=== PATIENT | female | born 1985 | race Caucasian/White ===

== ENCOUNTER 2023-03-01 14:49 | Outpatient (REF) | payer OTHER, SELFPAY ==
--- NOTE | ~2023-03-01 | XR_ITS ---
EXAMINATION: XR SHOULDER, RIGHT CLINICAL INFORMATION: Pain COMPARISON: None available. TECHNIQUE: Three views of the right shoulder. FINDINGS: No acute visible fracture or dislocation. Joint spaces and alignment are maintained. Soft tissues are unremarkable. Visualized portions of the right chest are unremarkable. XR/XR shoulder RT min 2V IMPRESSION: No acute visible fracture or dislocation.
== END 2023-03-01 14:50 | disposition home or self-care (01) ==
LOC: HO.HOSX 14:49
PROVIDERS: PCP Internal Medicine; Visit Provider Physician Assistant
DX: M75.21 Bicipital tendinitis, right shoulder (principal); M75.81 Other shoulder lesions, right shoulder
CPT/HCPCS: 20610; 73030; J1040

== ENCOUNTER 2023-03-01 14:49 | Outpatient (AMB) | payer OTHER, SELFPAY ==
--- NOTE | 2023-03-01 15:04 | A.OFFVIS_ITS ---
Intake Vital Signs 03/01/23 15:05 Height 5 ft 7 in Weight 205 lb BMI 32.1 Intake Visit Reasons: [employer]- RT shoulder pain, referral Intake Note: Dyan a 37 year old female presents today as a new patient for an evaluation of right shoulder pain. Patient reports intermittent pain that has been present for past 5 years. Limited ROM, affecting her AODL. Her shoulder is tender to the touch. Her PCP referred her to PT however she has not yet started. No other previous tx. History of back pain. Allergies No Known Allergies Allergy (Verified 03/01/23 15:05) HPI [employer]- RT shoulder pain, referral HPI Details 37-year-old female who [facility] for evaluation of right shoulder pain for 5 years. She states she has intermittent pain in her shoulder which is aggravated with lifting her arm and movement. She also c/o tenderness to touch and limited ROM in her shoulder which has been affecting her AODL. She was seen by her PCP who ordered physical therapy for her shoulder which she has not yet started. She had relief with naproxen and Tylenol but had to discontinue. She has not had any other treatment in the past. She has a history of back pain. She does not have a history of diabetes. 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 [facility] Surgical History (Updated 03/01/23 @ 15:07 by KE Keenan) History of bunionectomy Social History (Updated 03/01/23 @ 15:07 by KE Keenan) Patient Tobacco Use Status: Current everyday Tobacco user Current occupational status: employed Current occupation: Sales, right hand dominant Review of Systems Const All systems reviewed & are unremarkable except as noted in HPI and below Physical Exam Vital Signs: BMI result Body Mass Index 32.1 Const General: cooperative, healthy appearing, comfortable, no acute distress, well developed and alert Orientation/consciousness: patient oriented x3 HEENT Head: Yes normal to inspection, Yes normocephalic and Yes atraumatic Eyes General: appearance normal, both eyes and all related structures Resp Effort & Inspection: normal respiratory effort and able to speak in complete sentences Cardio Rate: regular rate Peripheral pulses: Peripheral pulses 2+ throughout GI Palpation (GI): Soft to palpation Skin Lesions: no lesions Rashes: no rashes Neuro General: patient oriented x3 Extrem Other: Right shoulder normal to inspection. Tenderness over the bicipital groove and along the deltoid region of the shoulder. Forward flexion to 175, external rotation to 90, internal rotation to S1. 5/5 RTC strength. Positive Garcia and O'Briens. NVI. Office Procedures Joint Injection/Drain Joint Injection/Drain Primary Site: right shoulder Prep: site was prepped using aseptic technique, ethochloride spray was applied and injection warnings given Injected: 80 mg of, DepoMedrol, with 8 mL of, 1% plain lidocaine and in the subcromial space Approach Used: posterolateral Procedure: The patient tolerated the procedure well and there was some relief with the local anesthesia Coding - Glenohumeral/Tronchanteric Bursa/Intraarticular Procedure code (CPT) selection complete Assessment & Plan Assessment & Plan (1) Biceps tendonitis on right: Code(s): M75.21 - Bicipital tendinitis, right shoulder (2) Tendinitis of right rotator cuff: Code(s): M75.81 - Other shoulder lesions, right shoulder Plan We discussed options today which include steroid injection. They did consent to move forward with the right shoulder injection, which was tolerated well. I recommended rest, ice and elevation and OTC anti-inflammatories PRN for discomfort. She was also referred to a course of physical therapy in the office today. If symptoms persist or worsens over the next 6-8 weeks, patient will contact the office, otherwise follow-up as needed. Orders: Orders XR shoulder RT min 2V Today M25.511 - Pain in right shoulder PT Evaluation and Treatment Today M75.21 - Bicipital tendinitis, right shoulder, M75.81 - Other shoulder lesions, right shoulder Patient Instructions: Scribed for Claudine Valero PA-C, by Chris Lagunas medical staff services manager, on 03/01/2023 at 3:00 PM EST. IClaudine PA-C, have personally reviewed and agree with the information entered by the scribe. Coding Level of Care Code New Pt Level 3 (64854) Diagnoses Biceps tendonitis on right M75.21 Tendinitis of right rotator cuff M75.81 CPT Codes Coding - Joint 7: 44643 - Glenohumeral/Tronchanteric Bursa/Intraarticular ([id number])
[2023-03-01 15:05] VITALS: BMI 32.1
== END 2023-03-01 15:56 | disposition home or self-care (01) ==
PROVIDERS: PCP Internal Medicine; Visit Provider Physician Assistant
DX: M75.81 Other shoulder lesions, right shoulder (principal); M75.21 Bicipital tendinitis, right shoulder
CPT/HCPCS: 20610; 99203

== ENCOUNTER 2023-05-03 09:00 | Outpatient (RCR) | payer OTHER, SELFPAY ==
--- NOTE | 2023-05-04 07:31 | MHC.PT.OD ---
[facility] [place] [facility] [place] [facility] [place] [facility] [address] Akiko Reagan [address] [phone] F: [phone] F: [phone] F: [phone] F: [phone] Physical Therapy Daily Note Diagnosis: M75.21 Bicipital tendonitis, right shoulder. M75.81 Other shoulder lesions, right shoulder. Bicep tendonitis, right of right rotator cuff, signed by Nasrin Valero PA-C date of script 03/02/23 Date of Surgery: Date of Evaluation: 03/18/23 Date of Treatment: 05/03/23 Treatments to Date: Cancellations to Date: No Shows to Date: Authorized Visits: 4 Insurance End Date: Precautions/ Contraindications: Subjective: My job limits me and Im undoing everything with work activity. Pt expressing no significant pain with therapy thus far, questions having a hypermobility disorder. Pain Score and Location: Objective Flowsheet: Tests & Measures 05/03/23: Pt expressing R shoulder flexion sx with 50 degrees pain starts 80 degrees, abduction 110, ER C7, IR to L3. 04/12/23:140 degrees, R shoulder abduction 140 degrees, R shoulder ER to C7, R shoulder IR to L3. Exercises Review of comprehensive HEP program to date, pec minor stretching with roller, doorway stretching/corner stretching, review of prone shoulder rows/extension/middle/lower trap raises, review of cervical stretches. Pt defer participation in the office this date due to sx/pain. Pt states she feels she has an undiagnosed hyperobility disorder- encourage and advised pt to speak with her PCP regarding this concern. Pt encouraged to make an appt with ortho (possible benefit in obtaining further imaging on her shoulder, concern for RTC tear due to ongoing pain, unchanged with PT. Education for self care/trial of theracane R UT with education re: goals and use. Modalities Assessment: 05/04/23: Pt has attended 4 sessions since start of care in February. Pt attributes inability to attend consistent appt due to work schedule/copay. Pt c/o ongoing anterior/lateral shoulder pain, unchanged with previous exercises which have been given. Pt would benefit from a follow up with her PCP and or orthopedic provider (was sent here with diagnosis of bicep tendonitis). Pt presents with sx which are consistent with that however she may benefit from an MRI due to unchanged status and worsening ROM since start of car observed today see ROM above. She has painful arc, diminished tolerance for active shoulder flexion. Has tried icing and over the counter anti-inflammatories with limited relief. She denies variable sx at rest. She reports concern for undiagnosed hypermobility disorder such as Kassidy Danlos (noted to palm the floor, thumb to wrist, elastic skin, states a assistant account manager once brought this topic of discussion to her, reports multiple cluster sx which could support this). Pt educated re: hypermobility screening tools and recommendation to consult with PCP. Pt reports compliance with HEP in the limited visits she has attended PT. She does verbalize constant irritation in her shoulder from physical lifting/cleaning and movement. She verbalizes awareness of body mechanics and has been educated in ways to minimize risk/injury with such things. She may benefit from an MRI to rule out possibility of an undetected tear. D/C pt to I HEP at this time due to limited gains/ plateaued status. 04/19/23: Pt expressed positive response to trial of theracane, took information about possibly obtaining for self care. 04/12/23: Pt has not been to PT since eval on 03/18/23, reports has been trying to do exercises, expresses increased sx. Has not been icing but has been using tylenol often to ease sx. AROM flexion 140, abduction 140, sx consistent with postural syndrome. Weak middle and lower trap, tight trap (+) impingement sx R UE. Pt is a RHD 37 y/o female, referred to PT for treatment R bicep tendonitis>RTC tendonitis following onset of of sx which have been present for some time at least for the past five years on and off. More recently, pt stating new retail job at [employer] with repetitive lifting resulting in worsening sx. Pt exhibits tightness of the bicep, pectoralis, upper trap/scalene/levator scapular musculature. Pt exhibits weakness of the maricel-scap, lower trap, rhomboids, middle trap, ER RTC, and poor posture resulting in altered mechanics. Pt would benefit from attending skilled PT low impact postural program with body mechanics focus services at a frequency of 1-2x/week x 6 weeks to address impairments, implement HEP, and restore functional mobility to resume PLOF. Pt deferred scheduling her follow up appt until she obtains her next work rotation. She was initiated in doorway pec stretch, pec minor stretching, horizontal abd, and cervical stretches post eval. She exhibits excellent rehab potential and a high level of motivation for sx. PT Plan: Follow up with ortho/PCP. I Short Term Goals: 1. Pt will demonstrate AAROM flexion to without impingement. 2. AAROM R shoulder IR midline L3. 3. Initiate HEP. 4. Demonstrate proper body mechanics>lifting 3:3 trials. [employer] Processing Supervisor Goals: 1. Middle trap 5/5 R UE. 2. Lower trap 5/5 R UE. 3. I HEP with good understanding with home program. 4. Strength 5/5. Electronically signed by: Yecenia Silvestre, PT, DPT
== END 2023-05-07 11:22 | disposition home or self-care (01) ==
LOC: HO.PTWFD 09:00
PROVIDERS: PCP Nurse Practitioner Family; Visit Provider Physician Assistant
DX: M75.21 Bicipital tendinitis, right shoulder (principal); M75.81 Other shoulder lesions, right shoulder
CPT/HCPCS: 97110; 97140; 97150; 97161; 97535

== ENCOUNTER 2023-05-14 14:49 | Outpatient (AMB) | payer OTHER, SELFPAY ==
--- NOTE | 2023-05-14 14:52 | MHC.OFFVIS ---
Intake Vital Signs 05/14/23 14:53 Height 5 ft 7 in Weight 205 lb BMI 32.1 Intake Visit Reasons: ov- Bicipital tendinitis, right shoulder Intake Note: Dyan a 37 year old female presents today for a follow up of right shoulder, last injection 03/01/23. Patient reports injection provided her some relief. Her pain has been getting worse and is radiating down her arm. States cramping in wrist. 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 Tried and failed PT. Allergies No Known Allergies Allergy (Verified 03/01/23 15:05) HPI ov- Bicipital tendinitis, right shoulder HPI Details 37-year-old female who returns to the office today for a follow-up of right shoulder pain. She had her last injection on 03/01/23 which provided her mild relief. She currently states she has worsening right shoulder pain which radiates down to her arm. She also c/o cramping in her wrist. She had undergone physical therapy with no relief. 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 [facility] Surgical History History of bunionectomy Social History Patient Tobacco Use Status: Current everyday Tobacco user Current occupational status: employed Current occupation: Sales, right hand dominant Review of Systems Const All systems reviewed & are unremarkable except as noted in HPI and below Physical Exam Vital Signs: BMI result Body Mass Index 32.1 Const General: cooperative, healthy appearing, comfortable, no acute distress, well developed and alert Orientation/consciousness: patient oriented x3 HEENT Head: Yes normal to inspection, Yes normocephalic and Yes atraumatic Eyes General: appearance normal, both eyes and all related structures Resp Effort & Inspection: normal respiratory effort and able to speak in complete sentences Cardio Rate: regular rate Peripheral pulses: Peripheral pulses 2+ throughout GI Palpation (GI): Soft to palpation Skin Lesions: no lesions Rashes: no rashes Neuro General: patient oriented x3 Extrem Other: Right shoulder normal to inspection. Tenderness over the bicipital groove and along the deltoid region of the shoulder. Forward flexion to 175, external rotation to 90, internal rotation to S1. 5/5 RTC strength. Positive Radha and Theodore'Nandini. NVI. Assessment & Plan Assessment & Plan (1) Tendinitis of right rotator cuff: Code(s): M75.81 - Other shoulder lesions, right shoulder (2) Tendinitis of right rotator cuff: Code(s): M75.81 - Other shoulder lesions, right shoulder Plan Given her continued discomfort and failed conservative treatment, an MRI of the right shoulder has been ordered to further evaluate the source of her pain. We will see her back once the scan is complete. Orders: Orders MR shoulder RT wo con 05/14/23 M75.81 - Other shoulder lesions, right shoulder Patient Instructions: Scribed for Claudine Valero PA-C, by Chris Lagunas medical lab scientist, on 05/14/2023 at 2:45 PM EST. IClaudine PA-C, have personally reviewed and agree with the information entered by the scribe. Coding Level of Care Code Est Pt Level 3 (35314) Diagnoses Tendinitis of right rotator cuff M75.81
[2023-05-14 14:53] VITALS: BMI 32.1
== END 2023-05-14 15:26 | disposition home or self-care (01) ==
LOC: HO.HOS 14:49
PROVIDERS: PCP Nurse Practitioner Family; Visit Provider Physician Assistant
DX: M75.81 Other shoulder lesions, right shoulder (principal)
CPT/HCPCS: 99213

== ENCOUNTER → 2023-05-14 14:49 | Outpatient (BNVA) | payer OTHER, SELFPAY | PROVIDERS: PCP Nurse Practitioner Family; Visit Provider Physician Assistant ==

== ENCOUNTER 2023-06-15 08:49 | Outpatient (REF) | payer OTHER, SELFPAY ==
--- NOTE | ~2023-06-15 | MR_ITS ---
EXAMINATION: MR SHOULDER WITHOUT CONTRAST, RIGHT CLINICAL INFORMATION: Right shoulder pain. Tendinitis. COMPARISON: Right shoulder radiographs dated 03/01/2023. TECHNIQUE: MRI of the shoulder without contrast was performed on a high-field scanner. FINDINGS: ROTATOR CUFF: Intact. No rotator cuff tendon tear. No muscle atrophy or fatty infiltration. BICEPS: Intact. CORACOACROMIAL ARCH: The undersurface of the acromion is curved with no subacromial spur. The acromioclavicular joint is normal. Small amount of fluid and edema within the subacromial subdeltoid bursa, consistent mild bursitis. LABRUM/CAPSULE: No labral tear. Intact joint capsule. GLENOHUMERAL JOINT/MARROW: Unremarkable. MR/MR shoulder RT wo con IMPRESSION: 1. Mild subacromial subdeltoid bursitis. 2. No rotator cuff or labral tear.
== END 2023-06-15 08:50 | disposition home or self-care (01) ==
LOC: HO.MRI 08:49
PROVIDERS: PCP Nurse Practitioner Family; Visit Provider Physician Assistant
DX: M75.81 Other shoulder lesions, right shoulder (principal)
CPT/HCPCS: 73221

== ENCOUNTER 2023-07-05 09:09 | Outpatient (AMB) | payer OTHER, SELFPAY ==
--- NOTE | 2023-07-05 09:26 | A.OFFVIS_ITS ---
Intake Vital Signs 07/05/23 09:33 Height 5 ft 7 in Weight 205 lb BMI 32.1 Intake Visit Reasons: ov- Bicipital tendinitis, right shoulder Intake Note: Dyan a 37 year old female presents today for an MRI review of right shoulder. Patient reports that her pain has increased, states a cramping sensation down her arm and swelling at her MCP in her 2nd and 3rd digit. Her increase of pain has caused her to miss a couple of shifts at work. She is now having discomfort in her left shoulder. Allergies No Known Allergies Allergy (Verified 07/05/23 09:33) HPI ov- Bicipital tendinitis, right shoulder HPI Details 37-year-old female who returns to the [facility] today for an MRI review of right shoulder. She currently states she has increased sharp stabbing pain and discomfort in her shoulder which is aggravated with lifting. She also c/o cramping, numbness and tingling in her shoulder which radiates down to her wrist to MCP of 2nd and 3rd digit. She has tried physical therapy without relief. She had a cortisone injection in February which provided her relief for 3 weeks until her work duty was changed. 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 [facility] Surgical History History of bunionectomy Social History Patient Tobacco Use Status: Current everyday Tobacco user Current occupational status: employed Current occupation: Sales, right hand dominant Review of Systems Const All systems reviewed & are unremarkable except as noted in HPI and below Physical Exam Vital Signs: BMI result Body Mass Index 32.1 Const General: cooperative, healthy appearing, comfortable, no acute distress, well developed and alert Orientation/consciousness: patient oriented x3 HEENT Head: Yes normal to inspection, Yes normocephalic and Yes atraumatic Eyes General: appearance normal, both eyes and all related structures Resp Effort & Inspection: normal respiratory effort and able to speak in complete sentences Cardio Rate: regular rate Peripheral pulses: Peripheral pulses 2+ throughout GI Palpation (GI): Soft to palpation Skin Lesions: no lesions Rashes: no rashes Neuro General: patient oriented x3 Extrem Other: Right shoulder normal to inspection. Tenderness over the bicipital groove and along the deltoid region of the shoulder. Forward flexion to 175, external rotation to 90, internal rotation to S1. 5/5 RTC strength. Positive Garcia and O'Briens. NVI. Bilateral wrist: Normal to inspection. Tenderness over the cubital tunnel. Numbness and tingling over the ulnar nerve distribution of the bilat hand. Able to make a full fist and fully extend all fingers. Positive Tinel's. Results Reviewed Results Reviewed: MR shoulder RT wo con 06/15/23 IMPRESSION: 1. Mild subacromial subdeltoid bursitis. 2. No rotator cuff or labral tear. Assessment & Plan Assessment & Plan (1) Polymyalgia: Code(s): M35.3 - Polymyalgia rheumatica (2) Tendinitis of right rotator cuff: Code(s): M75.81 - Other shoulder lesions, right shoulder (3) Biceps tendonitis on right: Code(s): M75.21 - Bicipital tendinitis, right shoulder Plan We had lengthy discussion about the treatment and the options available which include physical therapy which could be very beneficial for her but she is hesitant to move forward with it at this time. She expresses she is more interested in a rheumatology referral due to her multiple joint pain and concerns for autoimmune disorder for better picture throughout. An EMG of the bilateral upper extremity was also placed given her numbness and tingling. She will follow-up as needed. If she continues to have right shoulder pain, I discussed potential surgical consultation for bursitis with Dr. Sewell. She is content with this plan and will follow-up as needed. Orders: Orders NE nerve conduction velocity Today R20.0 - Anesthesia of skin, R20.2 - Paresthesia of skin NE electromyogram (EMG) Today R20.0 - Anesthesia of skin, R20.2 - Paresthesia of skin Referrals Rheumatology Referral M35.3 - Polymyalgia rheumatica Patient Instructions: Scribed for Claudine Valero PA-C, by Chris Lagunas biomedical analytical scientist, on 07/05/2023 at 9:15 AM EST. Claudine Vieira PA-C, have personally reviewed and agree with the information entered by the scribe. Coding Level of Care Code Est Pt Level 3 (83394) Diagnoses Polymyalgia M35.3 Tendinitis of right rotator cuff M75.81 Biceps tendonitis on right M75.21
[2023-07-05 09:33] VITALS: BMI 32.1
== END 2023-07-05 11:34 | disposition home or self-care (01) ==
PROVIDERS: PCP Nurse Practitioner Family; Visit Provider Physician Assistant
DX: M75.21 Bicipital tendinitis, right shoulder (principal); M35.3 Polymyalgia rheumatica; M75.81 Other shoulder lesions, right shoulder
CPT/HCPCS: 99213

== ENCOUNTER → 2023-07-05 09:09 | Outpatient (BNVA) | payer OTHER, SELFPAY | PROVIDERS: PCP Nurse Practitioner Family; Visit Provider Physician Assistant ==

== ENCOUNTER 2023-07-28 12:57 | Outpatient (REF) | payer OTHER, SELFPAY ==
--- NOTE | 2023-07-28 13:00 | EMG_ITS ---
Chief complaint: Was following orthopedics for right shoulder pain. Also has tingling on both hands. Reason for referral: Evaluate for Carpal Tunnel Syndrome Referred by: Claudine CHAVIRA Procedure done: Bilateral upper extremities NCS/EMG The limb temperature was monitored continuously and remained between 32-36 degrees C during the performance of the NCS. Nerve Conduction Studies Anti Sensory Summary Table ?Stim Site NR Onset (ms) Norm Onset (ms) Peak (ms) Norm Peak (ms) O-P Amp (?V) Norm O-P Amp Site1 Site2 Delta-0 (ms) Dist (cm) Wilian (m/s) Norm Wilian (m/s) Left Median Anti Sensory (2nd Digit) Wrist ? 2.6 3.2 <3.6 52.2 >10 Wrist 2nd Digit 2.6 14.0 54 Right Median Anti Sensory (2nd Digit) Wrist ? 2.3 3.0 <3.6 63.7 >10 Wrist 2nd Digit 2.3 14.0 61 Left Ulnar Anti Sensory (5th Digit) Wrist ? 2.3 3.1 <3.7 51.4 >15.0 Wrist 5th Digit 2.3 14.0 61 Right Ulnar Anti Sensory (5th Digit) Wrist ? 2.3 3.2 <3.7 52.9 >15.0 Wrist 5th Digit 2.3 14.0 61 Motor Summary Table ?Stim Site NR Onset (ms) Norm Onset (ms) O-P Amp (mV) Norm O-P Amp iAmp (mV) Amp (1st) (%) Site1 Site2 Delta-0 (ms) Dist (cm) Wilian (m/s) Norm Wilian (m/s) Left Median Motor (Abd Poll Brev) Wrist ? 3.0 <3.9 11.1 >4.5 12.9 100.0 Elbow Wrist 3.6 21.0 58 >45 Elbow ? 6.6 9.5 11.2 85.6 Right Median Motor (Abd Poll Brev) Wrist ? 3.0 <3.9 11.2 >4.5 13.6 100.0 Elbow Wrist 3.7 22.0 59 >45 Elbow ? 6.7 9.6 11.6 85.7 Left Ulnar Motor (Abd Dig Minimi) Wrist ? 2.7 <3.0 7.6 >5 8.7 100.0 B Elbow Wrist 3.0 20.5 68 >45 B Elbow ? 5.7 7.9 9.2 103.9 A Elbow B Elbow 1.7 10.0 59 >45 A Elbow ? 7.4 7.6 9.1 100.0 Right Ulnar Motor (Abd Dig Minimi) Wrist ? 2.7 <3.0 8.3 >5 10.7 100.0 B Elbow Wrist 3.2 20.0 63 >45 B Elbow ? 5.9 8.3 10.9 100.0 A Elbow B Elbow 1.3 10.0 77 >45 A Elbow ? 7.2 8.2 10.9 98.8 Comparison Summary Table ?Stim Site NR Peak (ms) Norm Peak (ms) P-T Amp (?V) Site1 Site2 Delta-P (ms) Norm Delta (ms) Right Median/Radial Dig I Comparison (Digit 1 - 10cm) Median ? 2.7 <2.9 58.9 Median Radial 0.2 Radial ? 2.5 <2.8 26.7 EMG ?Side Muscle Nerve Root Ins Act Fibs Psw Amp Dur Poly Recrt Int Pat Comment Left Biceps Musculocut C5-6 Nml Nml Nml Nml Nml 0 Nml Complete Left Triceps Radial C6-7-8 Nml Nml Nml Nml Nml 0 Nml Complete Left Deltoid Axillary C5-6 Nml Nml Nml Nml Nml 0 Nml Complete FINDINGS: All motor and sensory nerves tested showed normal latencies, amplitudes and conduction velocities. Concentric needle EMG was attempted on left upper extremity. Unfortunately patient felt lightheaded. We stopped the test. We had her lie down. She still felt very sleepy, lasting about few seconds, arousable with verbal stimuli. Had no difficulty breathing. Pulse ox 100%. Heart rate 60s. Did not have any chest pain. She was given cold compress for her head. She was offered water which she declined. She was observed for 10 minutes until she was feeling better and comfortable to stand and walk. Discussed option of sending to ER but she felt comfortable and felt better. She said she had an almost similar reaction when she had a shoulder injection last February, and she did okay after that. She was accompanied to the entrance of the hospital. She has a ride home. She is not driving. Precautions and/or limitations: Patient has tendency to have vasovagal reaction with needles. IMPRESSION: 1. This is a normal study. 2. There is no electrodiagnostic evidence for median neuropathy or ulnar neuropathy. CLINICAL COMMENT: Unable to complete EMG due to vasovagal reaction to needle. Thank you for your kind referral. Hanna Bradshaw MD, JENISE Board Certified, [place] [employer] and Rehabilitation (ABPMR) Board Certified, [place] Board of Electrodiagnostic Medicine (ABEM) [place] [id number] [facility]
== END 2023-07-28 12:58 | disposition home or self-care (01) ==
LOC: HO.NEURO 12:57
PROVIDERS: PCP Nurse Practitioner Family; Visit Provider Physician Assistant
DX: R20.0 Anesthesia of skin (principal); R20.2 Paresthesia of skin
CPT/HCPCS: 95885; 95911

== ENCOUNTER → 2023-07-28 13:00 | Outpatient (BNV) | payer OTHER, SELFPAY | PROVIDERS: PCP Nurse Practitioner Family; Visit Provider Physical Medicine & Rehabilitation | DX: M25.511 Pain in right shoulder (principal); M79.641 Pain in right hand; M79.642 Pain in left hand; R20.2 Paresthesia of skin | CPT/HCPCS: 95885; 95911 ==

== ENCOUNTER 2023-08-17 14:57 | Outpatient (AMB) | payer OTHER, SELFPAY ==
--- NOTE | 2023-08-17 15:06 | MHC.OFFVIS ---
Vital Signs 08/17/23 15:07 Height 5 ft 7 in Weight 199 lb 15.348 oz BMI 31.3 BP 130/80 Blood Pressure Location Rt brachial Position Sitting Pulse 93 Pulse Source Pulse Oximeter Pulse Oximetry (%) 98 Oxygen Delivery Method Room Air Intake Visit Reasons: PMR/CM Intake Note: New patient presents today for PMR consult, internally referred by Ortho. C/o pain in multiple joints. Pain started approx 5 years ago. 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 Patient states that she has always had pain at least dating back to her teens. She has pain in her shoulders, arms, elbows, hands. She states that she has minimal swelling and pain at the right 3rd MCP. She states that she is hyper flexible but she does not recall any joint dislocation. She has tried different treatments over the years including physical therapy, stretching, she was seen by Orthopedics last year and was diagnosed with rotator cuff tendonitis and received a steroid injection for subacromial bursitis. She states that it provided short-lived relief. Patient states that she stretches at least once a day in order to get her pains better. She stated that congestive heart failure runs in her family. She denies any unintentional weight loss, denies any unexplained fevers. No history of DVT/PE. Her fingers do not change color in the cold. She is unaware of any family history of an autoimmune rheumatic disease. She stated that her anxiety/depression was reasonably well controlled with a combination of Lexapro and bupropion but her psychiatrist left the practice recently and her PCP would not start her on the same medicines. She was switched to duloxetine and she does not feel it is as helpful. REPLACED BY [facility] Medical History MDD (major depressive disorder) KENNEDY (generalized anxiety disorder) PTSD (post-traumatic stress disorder) Ectopic Vaso-vagal reaction Surgical History History of bunionectomy Family History Father Arthritis Paternal Grandmother Arthritis Social History Alcohol intake: former Patient Tobacco Use Status: Current someday Tobacco user Current occupational status: employed Current occupation: Desk job, right hand dominant Female Reproductive History Menstrual Total pregnancies: 4 Ab spontaneous: 3 Review of Systems Const Reports fatigue and Reports weakness Musc Reports arthralgias, Reports joint swelling and Reports stiffness Neuro Reports weakness Psych Reports anxiety and Reports depression Endo Reports fatigue Physical Exam Vital Signs: Last Vital Signs Pulse 93 08/17/23 15:07 BP 130/80 08/17/23 15:07 Pulse Ox 98 08/17/23 15:07 Oxygen Delivery Method Room Air 08/17/23 15:07 BMI result Body Mass Index 31.3 Const General: cooperative, healthy appearing and comfortable Nutritional Appearance: obese Orientation/consciousness: patient oriented x3 Limitations: no limitations HEENT Head: Yes normocephalic and Yes atraumatic Mouth: moist mucous membranes Resp Effort & Inspection: normal respiratory effort and able to speak in complete sentences Auscultation: clear to auscultation bilaterally Cardio Rate: regular rate Rhythm: regular rhythm Skin General skin exam: no rashes or lesions noted Neuro General: patient oriented x3 Extrem Other: Bilateral hyper extensible thumbs Bilateral positive thumb sign Minimally hyper extensible elbows Patient able to put both palms on the floor with knees straight Normal nailfold capillaroscopy No active synovitis Psych Other: Patient gets tearful during the interview Results Reviewed Results Reviewed: MR shoulder RT wo con 06/15/23 IMPRESSION: 1. Mild subacromial subdeltoid bursitis. 2. No rotator cuff or labral tear. Assessment & Plan Assessment & Plan (1) Polyarthralgia: Code(s): M25.50 - Pain in unspecified joint Category: Medical Plan: This is a 37-year-old female who presents for evaluation of diffuse pain. Upon evaluation I do not see any evidence of an autoimmune rheumatic disease. Picture consistent with mild hypermobility as well as fibromyalgia. Discussed management of fibromyalgia with patient. Is a noninflammatory, non-autoimmune central afferent processing disorder leading to a diffuse pain syndrome. Patient used to follow-up regularly with a psychiatrist. She currently does not have a psychiatrist. She is on the wait list to see one. Patient has stretching regularly. I also suggested adding some low-impact exercises such as walking, yoga, aquatherapy Patient follow sleep hygiene practices and her sleep has improved. Discussed symptoms and signs suggestive of an autoimmune rheumatic disease at advised patient to return to clinic if she ever develops any of those symptoms. Follow-up with PCP Plan I spent 32 minutes reviewing patient's chart, evaluating patient, , counseling patient and documenting in the chart Coding Level of Care Code New Pt Level 3 (02612) Diagnoses Polyarthralgia M25.50
[2023-08-17 15:07] VITALS: BP 130/80; PULSE 93; O2SAT 98; BMI 31.3
== END 2023-08-17 15:57 | disposition home or self-care (01) ==
PROVIDERS: PCP Nurse Practitioner Family; Visit Provider Student in an Organized Health Care Education/Training Program
DX: M25.50 Pain in unspecified joint (principal)
CPT/HCPCS: 99203

== ENCOUNTER → 2023-08-17 14:57 | Outpatient (BNVA) | payer OTHER, SELFPAY | PROVIDERS: PCP Nurse Practitioner Family; Visit Provider Student in an Organized Health Care Education/Training Program ==

== ENCOUNTER 2023-09-15 14:59 | Outpatient (AMB) | payer OTHER, SELFPAY ==
--- NOTE | 2023-09-15 14:56 | MHC.OFFVIS ---
Intake Visit Reasons: F/U nerve conduction study review Allergies No Known Allergies Allergy (Verified 08/17/23 15:07) HPI HPI F/U nerve conduction study review: Details: 37 [facility] f/u EMG bilat UE . She states her symptoms have improved, She just switched jobs which is helping and she continues to modify activities. [facility] Medical History MDD (major depressive disorder) KENNEDY (generalized anxiety disorder) PTSD (post-traumatic stress disorder) Ectopic Vaso-vagal reaction Surgical History History of bunionectomy Family History Father Arthritis Paternal Grandmother Arthritis Social History Alcohol intake: former Patient Tobacco Use Status: Current someday Tobacco user Current occupational status: employed Current occupation: Desk job, right hand dominant Review of Systems Const All systems reviewed & are unremarkable except as noted in HPI and below Physical Exam Resp Effort & Inspection: normal respiratory effort and able to speak in complete sentences Telehealth Telehealth Telehealth Platform: Telephone Location of provider rendering services: practice address Location of patient: address on file Patient Identification confirmed using: Name, : Yes Telehealth method: voice only Patient verbally consented to treatment: Yes Patient verbally consented to billing insurance company: Yes Patient informed of any privacy concerns related to visit: Yes Minutes spent on Phone/Video with Pt.: 10 Results Reviewed Results Reviewed: IMPRESSION: 1. This is a normal study. 2. There is no electrodiagnostic evidence for median neuropathy or ulnar neuropathy. Assessment & Plan Assessment & Plan (1) Polymyalgia: Code(s): M35.3 - Polymyalgia rheumatica Category: Medical (2) Polyarthralgia: Code(s): M25.50 - Pain in unspecified joint Category: Medical Plan She will continue with activity modifications and if symptoms persist or worsen she will contact our office for formal Therapy referral. Coding Level of Care Code Tele Est Pt Level 3 (27125) Diagnoses Polymyalgia M35.3 Polyarthralgia M25.50
== END 2023-09-15 16:14 | disposition home or self-care (01) ==
LOC: HO.HOS 14:59
PROVIDERS: PCP Nurse Practitioner Family; Visit Provider Physician Assistant
DX: M35.3 Polymyalgia rheumatica (principal); M25.50 Pain in unspecified joint
CPT/HCPCS: 99213

== ENCOUNTER → 2023-09-15 14:59 | Outpatient (BNVA) | payer OTHER, SELFPAY | PROVIDERS: PCP Nurse Practitioner Family; Visit Provider Physician Assistant ==